=== PATIENT | female | born 1985 | race Caucasian/White ===

== ENCOUNTER → 2024-03-03 | Emergency (ER) | payer BC, OTHER ==
[~2024-03-03] VITALS: Ht 165.1 cm; Wt 63.5 kg
[~2024-03-03] MED LIST: ACET-2079 PO; DIAZ5TAB4 PO; LEVA0.316 IH; LISD50CA PO; METR-172 PO
[2024-03-03 14:52] LABS: BASOPHILS # (AUTO) 0.02 K/uL (0.00-0.20); BASOPHILS % (AUTO) 0.3 % (0.0-5.0); EOSINOPHILS # (AUTO) 0.07 K/uL (0.00-0.70); EOSINOPHILS % (AUTO) 1.1 % (0.0-8.0); HEMATOCRIT 43.2 % (36-48); IMMATURE GRANULOCYTE ABSOLUTE 0.01 K/uL (0-1); LYMPHOCYTES # (AUTO) 1.5 K/uL (1.0-4.8); LYMPHOCYTES % (AUTO) 23.9 % (21.0-51.0); MEAN CORPUSCULAR HEMOGLOBIN 30.7 pg (27.0-33.0); MEAN CORPUSCULAR HGB CONC 32.6 g/dL (32.0-36.0); MEAN CORPUSCULAR VOLUME 93.9 fL (79-99); MONOCYTES # (AUTO) 0.4 K/uL (0.1-1.0); NEUTROPHILS # (AUTO) 4.2 K/uL (1.8-7.7); NEUTROPHILS % (AUTO) 67.5 % (40.0-77.0); PLATELET COUNT (AUTO) 225 K/uL (130-400); RED CELL DISTRIBUTION WIDTH 12.3 % (11.0-15.5); WHITE BLOOD COUNT (AUTO) 6.2 K/uL (4.8-10.8)
[2024-03-03 15:05] LABS: CREATININE 0.8 mg/dL (0.5-1.0); POTASSIUM 4.1 mmol/L (3.5-5.1)
[2024-03-03 15:10] LABS: ALBUMIN 4.1 g/dL (3.5-5.0); BILIRUBIN,TOTAL 0.4 mg/dL (0.2-1.0); TOTAL PROTEIN, SERUM 7.5 g/dL (6.0-8.3)
[2024-03-03 15:17] LABS: APPEARANCE,URINE CLOUDY (CLEAR); BILIRUBIN,URINE NEGATIVE (NEGATIVE); COLOR,URINE YELLOW (YELLOW); GLUCOSE, URINE (UA) NEGATIVE (NEGATIVE); KETONES,URINE NEGATIVE (NEGATIVE); LEUKOCYTE ESTERASE ,URINE NEGATIVE Leu/uL (NEGATIVE); NITRATE,URINE NEGATIVE (NEGATIVE); OCCULT BLOOD,URINE NEGATIVE (NEGATIVE); PROTEIN,URINE 20 mg/dL (NEGATIVE); UROBILINOGEN,URINE 0.2 mg/dL (0.2-1.0)
[2024-03-03 15:25] LABS: ADD UA MICROSCOPIC YES
[2024-03-03 15:27] LABS: MUCUS,URINE RARE LPF (None Seen); SQUAMOUS EPITHELIAL CELL,UR FEW /HPF (0-2); YEAST,URINE BUDDING RARE /HPF (None Seen)
[2024-03-03] MEDS: HYDROCODONE/ACETAMINOPHEN 5/325 MG TAB PO ONE (15:35)
[2024-03-03 17:27] VITALS: BP 114/65; PULSE 79; RESP 18; O2SAT 99
[2024-03-03] MEDS: ACETAMINOPHEN WITH CODEINE 1 TAB TAB PO ONE (18:09)
== END ==
LOC: EDH 14:20
DX: N99.3 Prolapse of vaginal vault after hysterectomy (principal); Z79.899 Other long term (current) drug therapy; Z90.49 Acquired absence of other specified parts of digestive tract; Z98.890 Other specified postprocedural states
CPT/HCPCS: 36415; 76856; 80053; 81001; 85025

== ENCOUNTER 2025-06-28 23:23 | Emergency (ER) | payer BC, OTHER ==
[~2025-06-28] VITALS: Ht 165.1 cm; Wt 61.2 kg
[2025-06-28 23:43] LABS: IMMATURE GRANULOCYTE ABSOLUTE 0.01 K/uL (0-1); NUCLEATED RED BLOOD CELLS 0.0 % (0.0-0.19); PLATELET COUNT (AUTO) 194 K/uL (130-400); RED BLOOD CELL COUNT(AUTO) 4.46 MIL/uL (4.00-5.50); RED CELL DISTRIBUTION WIDTH 12.3 % (11.0-15.5); WHITE BLOOD COUNT (AUTO) 6.6 K/uL (4.8-10.8)
[2025-06-28 23:44] LABS: APPEARANCE,URINE CLEAR (CLEAR); GLUCOSE, URINE (UA) NEGATIVE (NEGATIVE); LEUKOCYTE ESTERASE ,URINE NEGATIVE Leu/uL (NEGATIVE); NITRATE,URINE NEGATIVE (NEGATIVE); OCCULT BLOOD,URINE NEGATIVE (NEGATIVE)
[2025-06-28 23:45] LABS: ADD UA MICROSCOPIC YES
[2025-06-28 23:46] LABS: HCG,QUALITATIVE URINE NEGATIVE (NEGATIVE)
[2025-06-28 23:48] LABS: OTHER CASTS, URINE 1 /LPF (None Seen); SQUAMOUS EPITHELIAL CELL,UR RARE /HPF (0-2)
[2025-06-28 23:51] LABS: CREATININE 0.8 mg/dL (0.5-1.0); GLOMERULAR FILTR. RATE CALC 97.0 mL/min (>90); GLUCOSE,RANDOM 151.0 mg/dL (70-105); SODIUM SERUM 142.0 mmol/L (136-145); UREA NITROGEN, BLOOD 23.0 mg/dL (7-18)
[2025-06-29] MEDS: 0.9%NACL 1000ML 1,000 ML IV ONE (00:18)
--- NOTE | 2025-06-29 00:29 | ERN ---
ED Note History of Present Illness Stated Complaint: LIGHT HEADED, DIZZY, SYNCOPE Chief Complaint: Syncope Time Seen by MD: 23:33 Time Seen by Midlevel: 23:33 Dictation: The patient is a 39-year-old female with history of Hashimotos, hysterectomy, acromegaly who presents to the emergency department with complains of syncope episode prior to arrival. Fall was witness by patients mother who reports LOC for about 3 seconds. Patient reports that she was getting botox and was more painful than usual and became nauseous. She got up from her sofa and then had a syncope episode. Patient denies any pain or trauma from the syncope. Reports that she has been having dizziness episode since 4 days ago. Reports who room spinning. Denies any head trauma, denies any vomiting or fevers. Allergies: Coded Allergies: No Known Drug Allergies (Verified Allergy, 07/13/13) Home Meds Active Scripts Acetaminophen with Codeine (Acetaminophen-Cod #3 Tablet) 300 Mg-30 Mg Tablet, 1- 2 TAB PO Q4H PRN for mod pain, #15 TAB Prov:KADEN VELÁZQUEZ 03/03/24 Metronidazole (Metronidazole) 500 Mg Tablet, 500 MG PO BID, #10 TAB Prov:PRAVEENA TENORIO MD 02/18/15 Reported Medications Levalbuterol HCl (Xopenex) 0.31 Mg/3 Ml Vial.neb, 0.31 MG IH Q6H for SHORTNESS OF BREATH/WHEEZING, INH 02/11/15 Lisdexamfetamine Dimesylate (Vyvanse) 50 Mg Capsule, 50 MG PO DAILY, CAP 02/11/15 Diazepam (Diazepam) 5 Mg Tablet, 5 MG PO BID PRN for ANXIETY/AGITATION, TAB 02/11/15 Past Medical History Past Medical History: Other Additional Past Medical Hx: BLADDER PROLAPS, LUPUS, HASHIMOTOS,ACROMEGALY Surgical History: Hysterectomy, Tonsillectomy Surgical History Other: BREAST AUGMENTATION History: Not Applicable RN Note Reviewed/Agreed w/PFSH: Yes Review of System Dictation Constitutional: Negative for fever,chills, and weight loss Eyes: Negative for injury, pain,redness, and discharge ENT: Negative for injury,pain or swelling Cardiovascular: Negative for chest pain, palpitations, and edema Respiratory: Negative for shortness of breath, cough, and wheezing, Abdomen/GI: Negative for abdominal pain, vomiting, diarrhea, and constipation positive for nausea Back: Negative for injury and pain : Negative for injury, bleeding and discharge MS/Extremity: Negative for injury and deformity Skin: Negative for rash, and discoloration Neuro: Negative for headache, weakness, numbness, tingling, and seizure positive for dizziness, syncope Psych: Negative for suicide ideation, homicidal ideation, and hallucinations Initial Vital Sign VS Vital Signs Date Time Temp Pulse Resp B/P (MAP) Pulse Ox O2 Delivery O2 Flow Rate FiO2 06/28/25 23:24 98.1 78 16 96/67 98 0 06/28/25 23:37 Room Air* 21 Physical Exam Dictation Vital Signs reviewed General Appearance: Alert, oriented x 3, no acute distress, well developed, nou rished. Head and Face: non-traumatic.no hematomas Eyes: PERRL, pink conjunctivas, eyelid no trauma, anterior chamber with arcus senilis. Ears: Pinnas intact and no signs of trauma or erythema ear canals clear and no discharge TM no erythema Nose: No discharge, no bleeding. Oropharynx: Mouth normal, tongue pink. pharynx clear,no erythema, tonsils no exudates, no abscesses noted, mucous membrane moist Neck: Supple, non-tender, no thyromegaly, no masses, no JVD, no bruits Breast:Deferred Chest:No tenderness, no crepitus, no paradoxical movement, no retractions Lungs:Clear, well-ventilated, symmetric, no rales, no wheezing, no rhonchi, no stridor, good breath sounds bilaterally Heart: Regular rate, regular rhythm, no murmur, no gallops Vascular: no peripheral edema, Abdomen: Soft, positive bowel sounds, nondistended, no guarding, nontender, no rebound, no masses no hepatomegaly, no splenomegaly, no Alicea's sign, no hernias. Rectal: Deferred Genital: Deferred Neurological: Normal speech, motor function intact, sensory function intact , upper extremities equal in strength, lower extremities equal in strength. no facial droop Musculoskeletal: Neck nontender, full range of motion, back nontender, full range of motion, Extremities: nontender, full range of motion Skin: Color pink, dry, no turgor, no rash, no lacerations, no abrasions, no contusions. Lymphatic: Deferred Results (Laboratory/Radiology) Laboratory/Radiology Laboratory Tests Test 06/28/25 23:32 06/28/25 23:34 Urine Color LIGHT-YELLOW (YELLOW) Urine Appearance CLEAR (CLEAR) Urine pH 6.0 (5.0-8.0) Urine Specific [place] 1.016 (1.001-1.031) Urine Protein 10 mg/dL (NEGATIVE) H Urine Glucose (UA) NEGATIVE mg/dL (NEGATIVE) Urine Ketones NEGATIVE mg/dL (NEGATIVE) Urine Occult Blood NEGATIVE (NEGATIVE) Urine Nitrate NEGATIVE (NEGATIVE) Urine Bilirubin NEGATIVE mg/dL (NEGATIVE) Urine Urobilinogen 0.2 mg/dL (0.2-1.0) Urine Leukocyte Esterase NEGATIVE Phong/uL Urine RBC 2-5 /HPF (0-1) H Urine WBC 2-5 /HPF (0-1) H Urine Squamous Epithelial Cells RARE /HPF (0-2) Urine Bacteria RARE /HPF (None Seen) Urine Other Casts 1 /LPF (None Seen) Urine HCG, Qualitative NEGATIVE (NEGATIVE) White Blood Count 6.6 K/uL (4.8-10.8) Red Blood Count 4.46 MIL/uL (4.00-5.50) Hemoglobin 13.7 g/dL (12.0-16.0) Hematocrit 41.6 % (36-48) Mean Corpuscular Volume 93.3 fL (79-99) Mean Corpuscular Hemoglobin 30.7 pg (27.0-33.0) Mean Corpuscular Hemoglobin Concent 32.9 g/dL (32.0-36.0) Red Cell Distribution Width 12.3 % (11.0-15.5) Platelet Count 194 K/uL (130-400) Mean Platelet Volume 10.8 fL (7.5-10.5) H Immature Granulocyte % (Auto) 0.2 % (0-1) Neutrophils (%) (Auto) 69.0 % (40.0-77.0) Lymphocytes (%) (Auto) 22.7 % (21.0-51.0) Monocytes (%) (Auto) 6.2 % (3.0-13.0) Eosinophils (%) (Auto) 1.4 % (0.0-8.0) Basophils (%) (Auto) 0.5 % (0.0-5.0) Neutrophils # (Auto) 4.6 K/uL (1.8-7.7) Lymphocytes # (Auto) 1.5 K/uL (1.0-4.8) Monocytes # (Auto) 0.4 K/uL (0.1-1.0) Eosinophils # (Auto) 0.09 K/uL (0.00-0.70) Basophils # (Auto) 0.03 K/uL (0.00-0.20) Absolute Immature Granulocyte (auto 0.01 K/uL (0-1) Nucleated Red Blood Cells 0.0 % (0.0-0.19) Sodium Level 142 mmol/L (136-145) Potassium Level 3.9 mmol/L (3.5-5.1) Chloride Level 105 mmol/L (101-111) Carbon Dioxide Level 26 mmol/L (21-32) Blood Urea Nitrogen 23 mg/dL (7-18) H Creatinine 0.8 mg/dL (0.5-1.0) Glomerular Filtration Rate Calc 97 mL/min (>90) Random Glucose 151 mg/dL (70-105) H Total Calcium 8.9 mg/dL (8.5-10.1) Total Creatine Kinase 37 U/L (21-232) Troponin I High Sensitivity < 4 ng/L (4-50) L ORDERING PHYSICIAN: ANDRIA MCKEE ASSET PROTECTION OFFICER PROCEDURE: HEAD WO - CT HEAD/BRAIN W/O CONTRAST EXAM: Non-contrast CT examination of the Brain. CLINICAL HISTORY: Syncope. TECHNIQUE: Thin collimated axial CT images of the brain were obtained, with sagittal and coronal reformatted images also submitted. CT scan done according to ALARA (As Low as Reasonably Achievable). CONTRAST USED: None. COMPARISON: None provided. FINDINGS: No acute intracranial abnormality is present. No acute cortical infarction, hemorrhage, mass, or mass effect. No hydrocephalus or abnormal extra-axial fluid collections. The posterior fossa is unremarkable. The skull base and calvarium are intact. The included portions of the paranasal sinuses and mastoid air cells are clear. IMPRESSION: No acute intracranial abnormality is present. /[place] REASON: syncope ORDERING PHYSICIAN: ANDRIA MCKEE ASSET PROTECTION OFFICER PROCEDURE: HEAD WO - CT HEAD/BRAIN W/O CONTRAST EXAM: Non-contrast CT examination of the Brain. CLINICAL HISTORY: Syncope. TECHNIQUE: Thin collimated axial CT images of the brain were obtained, with sagittal and coronal reformatted images also submitted. CT scan done according to ALARA (As Low as Reasonably Achievable). CONTRAST USED: None. COMPARISON: None provided. FINDINGS: No acute intracranial abnormality is present. No acute cortical infarction, hemorrhage, mass, or mass effect. No hydrocephalus or abnormal extra-axial fluid collections. The posterior fossa is unremarkable. The skull base and calvarium are intact. The included portions of the paranasal sinuses and mastoid air cells are clear. IMPRESSION: No acute intracranial abnormality is present. /[place] Labs Reviewed?: Yes EKG: (+) rhythm (NS rhythm) EKG Comment: Date:06/28/2025 Time:2332 Ventricular rate:63 [place] interval:94 QRS duration:94 QT/QTc:411/419 EKG interpretation: Sinus rhythm Reviewed by ED Attending no STEMI ED Course ED Course Orders Procedure Category Date Status Time 12 Lead Ekg Tracing- EKG 06/28/25 Complete Technical 23:33 Cbc With Differential LAB 06/28/25 Complete 23:33 Basic Metabolic Panel LAB 06/28/25 Complete 23:33 Urinalysis Profile LAB 06/28/25 Complete 23:33 ,Urine Test LAB 06/28/25 Complete 23:33 Chest 1vw RAD 06/28/25 Resulted 23:53 Ct Head/Brain W/O CT 06/28/25 Resulted Contrast 23:53 0.9%Nacl 1000ml (Ns PHA 06/29/25 Complete 1000ml) 00:00 Orthostatic Vital CPOE 06/28/25 Transmitted Signs 23:53 Meclizine Hcl 25 Mg PHA 06/29/25 Complete (Antivert 25 Mg) 00:00 Creatine Kinase, Total LAB 06/28/25 Complete 23:53 Troponin I High LAB 06/28/25 Complete Sensitivity 23:53 Current Medications Medications (Trade) Dose Ordered Sig/Rosalia Route PRN Reason Start Time Stop Time Status Last Admin Dose Admin Meclizine HCl (ANTIvert 25 mg) 25 mg ONCE ONCE PO 06/29/25 00:00 06/29/25 00:01 DC 06/29/25 00:19 Sodium Chloride 1,000 ml @ 0 mls/hr ONCE ONCE IV 06/29/25 00:00 06/29/25 00:01 DC 06/29/25 00:18 Vital Signs Date Time Temp Pulse Resp B/P (MAP) Pulse Ox O2 Delivery O2 Flow Rate FiO2 06/29/25 02:39 98.2 86 16 108/62 100 Room Air* 0 21 06/29/25 01:54 92 16 107/63 99 Room Air* 0 21 06/29/25 00:28 83 16 118/81 100 Room Air* 0 21 06/29/25 00:26 77 18 112/77 100 Room Air* 0 21 06/29/25 00:24 67 14 103/66 100 Room Air* 0 21 06/28/25 23:37 97.9 66 14 108/74 100 Room Air* 0 21 06/28/25 23:24 98.1 78 16 96/67 98 0 Medical Decision Making MDM The patient is a 39-year-old female with history of Hashimotos, hysterectomy, acromegaly who presents to the emergency department with complains of syncope episode prior to arrival. Fall was witness by patients mother who reports LOC for about 3 seconds. Patient reports that she was getting botox and was more painful than usual and became nauseous. She got up from her sofa and then had a syncope episode. Patient denies any pain or trauma from the syncope. Reports that she has been having dizziness episode since 4 days ago. Reports who room spinning. Denies any head trauma, denies any vomiting or fevers. CBC showed no leukocytosis, no anemia, chemistry showed no electrolyte imbalance, normal renal function, urinalysis negative for leukocyte esterase or nitrites, negative CK, negative troponins. CT head was unremarkable. Chest x- ray was unremarkable. Patient reports she was in a lot of pain due to Botox with the incident happened. This could be related to vaso vagal response. Schlater syncope risk score very low risk. Patient reports feeling better after medications. On physical exam patient is in no acute distress, nontoxic appearance. stable vital signs. labs and imagine discuss with patient and family who agree to follow up with PCP. Differential diagnosis: Vertigo, orthostatic hypotension, vasovagal response, dehydration more tachyarrhythmias DX & DISP Disposition: Discharge Departure Impression: Primary Impression: Syncope Additional Impression: Vaso vagal episode Condition: Stable Referrals: PABLITO LIND (PCP) Time of Disposition: 02:03 I have reviewed the case, and I agree with, Diagnosis and Plan I performed a substantive portion of the visit. I have reviewed and personally made and approve the management plan that is documented in the notes by myself with CHARLIE/resident. I acknowledged full responsibility for the patient's management plan. ANDRIA MCKEE Jun 29, 2025 00:29 TONO CARTER DO Jun 29, 2025 05:41
--- NOTE | 2025-06-29 01:51 | HMCIMG ---
EXAM: Non-contrast CT examination of the Brain. CLINICAL HISTORY: Syncope. TECHNIQUE: Thin collimated axial CT images of the brain were obtained, with sagittal and coronal reformatted images also submitted. CT scan done according to ALARA (As Low as Reasonably Achievable). CONTRAST USED: None. COMPARISON: None provided. FINDINGS: No acute intracranial abnormality is present. No acute cortical infarction, hemorrhage, mass, or mass effect. No hydrocephalus or abnormal extra-axial fluid collections. The posterior fossa is unremarkable. The skull base and calvarium are intact. The included portions of the paranasal sinuses and mastoid air cells are clear. IMPRESSION: No acute intracranial abnormality is present. /[place]
--- NOTE | 2025-06-29 01:52 | HMCIMG ---
EXAM: CR Chest, 1 view CLINICAL HISTORY: Dizziness. COMPARISON: None provided. FINDINGS: The lungs show no infiltrates or other acute findings. No pleural effusion or pneumothorax. The cardiomediastinal silhouette is within normal limits. No acute osseous abnormality. IMPRESSION: No acute cardiopulmonary pathology is evident. /[place]
[2025-06-29 02:39] VITALS: BP 108/62; PULSE 86; RESP 16; TEMP 98.2; O2SAT 100
--- NOTE | 2025-06-29 02:39 | NUR ---
patient able to ambulate independently
--- NOTE | 2025-06-29 04:36 | EKG ---
[facility] Test Date: 2025-06-28 Test Time: 23:32:59 Pat Name: MARINO REED Department: ED Room: Gender: F Computer Technician: [id number] : 1985 Requested By: TONO CARTER Order Number: [id number] Reading MD: Tj Esteves Measurements Intervals [place] Rate: 63 P: 69 SD: 136 QRS: 68 QRSD: 94 T: 55 QT: 411 QTc: 419 Interpretive Statements Sinus rhythm Compared to ECG 02/15/2015 10:49:12 T-wave abnormality no longer present LVH BY VOLTAGE Electronically Signed On 06-29-2025 18:04:25 CDT by Tj Esteves Please click the below link to view image of tracing.
== END 2025-06-29 02:40 | disposition home or self-care (01) ==
LOC: EDH 23:23
DX: R55 Syncope and collapse (principal); E06.3 Autoimmune thyroiditis; Z79.899 Other long term (current) drug therapy; Z90.710 Acquired absence of both cervix and uterus; Z90.89 Acquired absence of other organs
CPT/HCPCS: 99284; 70450; 71045; 82550; 84484; 80048; 85025; 81001; 81025; 36415; 93005; 96360; 96361; J7030